=== PATIENT | female | born 1995 | race African-American/Black ===

== ENCOUNTER 2017-07-26 11:17 | Emergency (ER) | payer OTHER ==
[~2017-07-26] VITALS: Ht 157.5 cm; Wt 97.7 kg
[2017-07-26 11:20] VITALS: TEMP 36.9; Ht 157.5 cm; Wt 97.7 kg
--- NOTE | 2017-07-26 12:02 | DIAGNOSTIC IMAGING REPORT ---
L ANKLE MIN 3 VIEWS ROUTINE CLINICAL HISTORY: left ankle swelling COMPARISON: None. DISCUSSION: No fractures or dislocations are visualized. No erosive or destructive changes are visualized. IMPRESSION: No bony abnormalities identified. Electronically signed by: Wyatt Vázquez M.D. 07/26/2017 12:00 PM Dictated Date/Time: 07/26/2017 11:59 AM
--- NOTE | 2017-07-26 12:39 | DIAGNOSTIC IMAGING REPORT ---
ULTRASOUND VENOUS DOPPLER ULTRASOUND OF THE LEFT LOWER EXTREMITY CLINICAL HISTORY: Left leg swelling. History of DVT. COMPARISON STUDY: No previous studies for comparison. FINDINGS: Real-time and color flow Doppler venous study is performed in the left lower extremity. There are no findings to indicate acute DVT. There is fibrin stranding within the superficial femoral, and popliteal veins. There is incomplete compressibility of the popliteal vein. The posterior tibial veins are occluded. IMPRESSION: 1. 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 2. Age-indeterminate thrombus within the distal popliteal vein, and both posterior tibial veins which are occluded. Electronically signed by: Wyatt Vázquez M.D. 07/26/2017 12:38 PM Dictated Date/Time: 07/26/2017 12:35 PM
[2017-07-26 13:04] LABS: BASO % 0.1 %; BASO ABS # 0.01 K/uL (0-0.2); COMPLETE YES; EOS % 1.3 %; HEMATOCRIT 38.4 % (37-47); IG% 0.3 %; LYMPH % 26.9 %; LYMPH ABS # 2.11 K/uL (1.2-3.4); MEAN CORPUSCULAR HEMOGLOBIN 26.3 pg (25-34); MEAN CORPUSCULAR HGB CONC 32.8 g/dl (32-36); MEAN PLATELET VOLUME 10.2 fL (7.4-10.4); MONO % 7.3 %; NEUT % 64.1 %; PLATELET COUNT 250 K/uL (130-400); WHITE BLOOD COUNT 7.83 K/uL (4.8-10.8)
[2017-07-26 13:15] LABS: PARTIAL THROMBOPLASTIN RATIO 1.1; PROTHROMBIN TIME (PATIENT) 10.4 SECONDS (9.0-12.0)
[2017-07-26 13:20] VITALS: BP 140/86; PULSE 78; O2SAT 98
[2017-07-26 13:21] LABS: BLOOD UREA NITROGEN 8 mg/dl (7-18); BUN/CREATININE RATIO 17.9 (10-20); CALCIUM 8.6 mg/dl (8.5-10.1); CARBON DIOXIDE 27 mmol/L (21-32); CHLORIDE 106 mmol/L (98-107); CREATININE 0.47 mg/dl (0.60-1.20); GLUCOSE 99 mg/dl (70-99); POTASSIUM 3.6 mmol/L (3.5-5.1); SODIUM 139 mmol/L (136-145)
[2017-07-26] MEDS ORDERED: RIVAROXABAN TAB 15 MG TAB PO STA (13:26)
[2017-07-26] MEDS ORDERED: RIVA1.5T PO (13:29)
[2017-07-26 13:32] LABS: PREG INTERNAL NEGATIVE QC NEG CLEAR BACKGROUND; PREG INTERNAL POSITIVE QC POS CONTROL LINE
--- NOTE | 2017-07-26 13:33 | EMERGENCY ROOM VISIT NOTE ---
History First contact with patient: 11:24 Chief Complaint: SWELLING TO EXTREMITY Stated Complaint: SWELLING TO LEFT ANKLE HX: DVT History of Present Illness The patient is a 22 year old female who presents to the Emergency Room with complaints of left ankle swelling. The patient states that she has had swelling in her left ankle which began yesterday. She denies any injury to the ankle. The patient reports a history of DVT and states that last time she had a DVT, it also caused swelling in the left ankle. She states that her previous DVT occurred at age 14 and she was told it was because she had abnormal hormone levels after an . She was on Lovenox for several months. She is unsure if there was any hypercoagulable testing performed. The patient reports pain in her ankle which she rates an 8/10. She does not smoke. She denies control use. She denies any recent travel. The patient denies any redness, warmth or fevers. She denies chest pain or shortness of breath. Review of Systems A complete 10 point review of systems was reviewed with the patient with pertinent positives and negatives as per history of present illness. All else were negative. Social History Smoking Status: Never Smoker Current/Historical Medications Scheduled Rivaroxaban (Xarelto), 15 MG PO BID Physical Exam Vital Signs Date Time Temp Pulse Resp B/P (MAP) Pulse Ox O2 Delivery O2 Flow Rate FiO2 07/26/17 13:20 78 20 140/86 98 Room Air 07/26/17 11:20 36.9 84 16 128/82 100 Room Air Physical Exam VITALS: Vitals are noted on the nurse's note and reviewed by myself. Vital signs stable. GENERAL: This is a 22-year-old female, in no acute distress, nondiaphoretic, well-developed well-nourished. HEART: Regular rate and rhythm without murmurs gallops or rubs. LUNGS: Clear to auscultation bilaterally without wheezes, rales or rhonchi. EXTREMITIES: There is edema of the medial aspect of the left lower leg. No redness, warmth or palpable cord. NEURO: Patient was alert and oriented to person place and time. Normal sensation to light and sharp touch. Medical Decision & Procedures ER Provider Diagnostic Interpretation: L ANKLE MIN 3 VIEWS ROUTINE DISCUSSION: No fractures or dislocations are visualized. No erosive or destructive changes are visualized. IMPRESSION: No bony abnormalities identified. ULTRASOUND VENOUS DOPPLER ULTRASOUND OF THE LEFT LOWER EXTREMITY CLINICAL HISTORY: Left leg swelling. History of DVT. COMPARISON STUDY: No previous studies for comparison. FINDINGS: Real-time and color flow Doppler venous study is performed in the left lower extremity. There are no findings to indicate acute DVT. There is fibrin stranding within the superficial femoral, and popliteal veins. There is incomplete compressibility of the popliteal vein. The posterior tibial veins are occluded. IMPRESSION: 1. 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 2. Age-indeterminate thrombus within the distal popliteal vein, and both posterior tibial veins which are occluded. Laboratory Results 07/26/17 12:50 Red Blood Count 4.80, Mean Corpuscular Volume 80.0, Mean Corpuscular Hemoglobin 26.3, Mean Corpuscular Hemoglobin Concent 32.8, Mean Platelet Volume 10.2, Neutrophils (%) (Auto) 64.1, Lymphocytes (%) (Auto) 26.9, Monocytes (%) (Auto) 7.3, Eosinophils (%) (Auto) 1.3, Basophils (%) (Auto) 0.1, Neutrophils # (Auto) 5.02, Lymphocytes # (Auto) 2.11, Monocytes # (Auto) 0.57, Eosinophils # (Auto) 0.10, Basophils # (Auto) 0.01 07/26/17 12:50 Test 07/26/17 12:50 White Blood Count 7.83 K/uL (4.8-10.8) Red Blood Count 4.80 M/uL (4.2-5.4) Hemoglobin 12.6 g/dL (12.0-16.0) Hematocrit 38.4 % (37-47) Mean Corpuscular Volume 80.0 fL (80-100) Mean Corpuscular Hemoglobin 26.3 pg (25-34) Mean Corpuscular Hemoglobin Concent 32.8 g/dl (32-36) Platelet Count 250 K/uL (130-400) Mean Platelet Volume 10.2 fL (7.4-10.4) Neutrophils (%) (Auto) 64.1 % Lymphocytes (%) (Auto) 26.9 % Monocytes (%) (Auto) 7.3 % Eosinophils (%) (Auto) 1.3 % Basophils (%) (Auto) 0.1 % Neutrophils # (Auto) 5.02 K/uL (1.4-6.5) Lymphocytes # (Auto) 2.11 K/uL (1.2-3.4) Monocytes # (Auto) 0.57 K/uL (0.11-0.59) Eosinophils # (Auto) 0.10 K/uL (0-0.5) Basophils # (Auto) 0.01 K/uL (0-0.2) RDW Standard Deviation 39.2 fL (36.4-46.3) RDW Coefficient of Variation 13.5 % (11.5-14.5) Immature Granulocyte % (Auto) 0.3 % Immature Granulocyte # (Auto) 0.02 K/uL (0.00-0.02) Prothrombin Time 10.4 SECONDS (9.0-12.0) Prothromb Time International Ratio 1.0 (0.9-1.1) Activated Partial Thromboplast Time 28.1 SECONDS (21.0-31.0) Partial Thromboplastin Ratio 1.1 Anion Gap 6.0 mmol/L (3-11) Est Creatinine Clear Calc Drug Dose 205.0 ml/min Estimated GFR () > 150.0 Estimated GFR (Non- 140.2 BUN/Creatinine Ratio 17.9 (10-20) Calcium Level 8.6 mg/dl (8.5-10.1) Human Chorionic Gonadotropin, Qual NEG (NEG) Medications Administered Medications (Trade) Dose Ordered Sig/Pierce Route Start Time Stop Time Status Last Admin Dose Admin Rivaroxaban (Xarelto Tab) 15 mg NOW STAT PO 07/26/17 13:26 07/26/17 13:28 DC 07/26/17 13:49 15 MG Medical Decision Differential diagnosis includes DVT, superficial thrombus, fracture, contusion, sprain, gout, cellulitis, among others. The patient was evaluated as above. X-ray was unremarkable. Ultrasound of the left lower extremity was performed and showed chronic fibrin stranding as well as an age-indeterminate thrombus. I do feel the patient will require anticoagulation for this and may require lifelong anticoagulation. I spoke with the patient's mother, who stated that the patient has had a hypercoagulable workup and that one of the tests was positive. I discussed with the patient and mother and discussed risks/benefits of Xarelto versus Coumadin and Lovenox. They prefer to try Xarelto. The patient was given her initial dose of this and was given a prescription as well. She is planning to follow-up with her primary care provider at home as soon as possible. She was encouraged to return here if she develops any worsening or new/concerning symptoms. She and her mother verbalized understanding and the patient was discharged home in good condition. Medication Reconcilliation Current Medication List: was personally reviewed by me Blood Pressure Screening Patient's blood pressure: Normal blood pressure Impression Primary Impression: Left leg DVT Departure Information Dispostion Home / Self-Care Condition GOOD Prescriptions Rivaroxaban (XARELTO) 15 Mg Tab 15 MG PO BID for 21 Days, #42 TAB Prov: Karen Castro ., RICHARD 07/26/17 Referrals [facility] (PCP) Patient Instructions DVT, My [facility] Additional Instructions Xarelto, 15 mg twice daily for 21 days. You will then likely need to take 20 mg daily for some additional time. Follow-up with your primary care provider or [facility] for further instructions and follow-up. You are on a medication which will thin your blood. If you have any major head injury, you should be evaluated at an emergency department. Return to the emergency department immediately with worsening swelling/pain, chest pain, shortness of breath or any new/concerning symptoms.
== END 2017-07-26 13:49 | disposition home or self-care (01) ==
LOC: C.EDB 11:21 → C.EDC 13:49
DX: I82.432 Acute embolism and thrombosis of left popliteal vein (principal); I82.442 Acute embolism and thrombosis of left tibial vein; I82.812 Embolism and thrombosis of superficial veins of left lower extremity; Z86.718 Personal history of other venous thrombosis and embolism